=== PATIENT | male | born 1965 | race Caucasian/White ===

== ENCOUNTER → 2020-08-02 | Outpatient (CLI) | payer BC | LOC: RAD 18:55 | DX: J40 Bronchitis, not specified as acute or chronic (principal) ==

== ENCOUNTER → 2021-01-24 | Outpatient (CLI) | payer OTHER ==
[2021-01-24 09:59] LABS: ALBUMIN 4.1 g/dL (3.5-5.0)
[2021-01-24 10:00] LABS: POTASSIUM 4.5 mmol/L (3.5-5.1)
[2021-01-24 10:01] LABS: CALCIUM 8.9 mg/dL (8.3-10.5)
[2021-01-24 10:02] LABS: TOTAL PROTEIN 7.5 g/dL (6.4-8.3)
[2021-01-24 10:21] LABS: TOTAL BILIRUBIN 0.3 mg/dL (0.2-1.2)
== END ==
LOC: LAB 09:33
PROVIDERS: Family Medicine
DX: H53.9 Unspecified visual disturbance (principal)

== ENCOUNTER → 2023-12-06 | Day surgery (SDC) | payer OTHER ==
[~2023-12-06] MED LIST: PANTOPRAZOLE SO40 MG PO; PREDNISONE20 M1 PO
== END | disposition home or self-care (01) ==
LOC: MSO 07:13
DX: Z12.11 Encounter for screening for malignant neoplasm of colon (principal)
CPT/HCPCS: 00812; J2704; J3010; J7120

== ENCOUNTER → 2023-12-22 | Outpatient (CLI) | payer OTHER ==
[2023-12-22 10:56] LABS: BASO # 0.02 K/mm3 (0.02-0.10); EOS # 0.15 K/mm3 (0.04-0.40); EOS % 2.3 % (0.0-4.0); HEMATOCRIT 43.5 % (42.0-52.0); HEMOGLOBIN 14.3 g/dL (13.5-18.0); LYMPH# 1.37 K/mm3 (1.50-4.00); MEAN CELL VOLUME 95 fl (78-100); MEAN CORPUSCULAR HEMOGLOBIN 31 pg (27-31); MEAN CORPUSCULAR HGB CONC 33 g/dL (33-37); MEAN PLATELET VOLUME 8.7 fl (7.4-10.4); MONO # 0.68 K/mm3 (0.20-0.80); NEU # 4.22 K/mm3 (1.40-6.50); PLATELET COUNT 274 K/mm3 (130-400); RED CELL DISTRIBUTION WIDTH 12.2 % (11.5-14.5); WHITE BLOOD COUNT 6.5 K/mm3 (4.8-10.8)
[2023-12-22 11:05] LABS: ALBUMIN 4.2 g/dL (3.5-5.0)
[2023-12-22 11:06] LABS: CALCIUM 8.8 mg/dL (8.3-10.5)
[2023-12-22 11:08] LABS: TOTAL PROTEIN 7.4 g/dL (6.4-8.3)
[2023-12-22 11:09] LABS: TOTAL BILIRUBIN 0.3 mg/dL (0.2-1.2)
== END ==
LOC: LAB 10:37
PROVIDERS: Registered Nurse
DX: Z13.1 Encounter for screening for diabetes mellitus (principal); Z13.6 Encounter for screening for cardiovascular disorders; R60.0 Localized edema; R53.83 Other fatigue

== ENCOUNTER → 2023-12-24 | Outpatient (CLI) | payer OTHER | LOC: RAD 09:53 | DX: R60.0 Localized edema (principal) ==